=== PATIENT | female | born 1940 | race African-American/Black ===

== ENCOUNTER 2019-08-05 16:14 | Emergency (ER) | payer MEDICARE, BC ==
[~2019-08-05] VITALS: Ht 152.4 cm; Wt 65.2 kg
--- NOTE | 2019-08-05 16:54 | NUR ---
THIS IS AN 79YO FEMALE COMING IN WITH SYSTEMIC "BURNING LIKE SENSATION TO SKIN AND DIZZINESS/WEAKNESS THAT COMES AND GOES". PATIENT STATES THESE SYMPTOMS HAVE BEEN INTERMITTENT X1 YEAR, THIS PAST WEEK HAS BEEN CONSTANT AND WORSENING. C/O EPIGASTRIC PAIN RADIATING TO RIGHT SHOULDER THAT IS INTERMITTENT RATED 5/10 PAIN, SOB WHEN LYING ON RIGHT SIDE. HX OF COPD. DENIES COUGH/FATIGUE. FSBS IN TRIAGE 109, EKG IN TRIAGE. 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 ALL OTHER VSS, NADN, CALL LIGHT IN REACH. PATIENT ON 2L NC BASELINE FOR COPD
[2019-08-05 17:12] LABS: BASOPHILS # (AUTO) 0.02 x10^3/uL (0-0.1); BASOPHILS % (AUTO) 0 % (0-1); EOSINOPHILS # (AUTO) 0.05 x10^3/uL (0-0.4); EOSINOPHILS % (AUTO) 1 % (1-7); LYMPHOCYTES # (AUTO) 1.02 x10^3/uL (1-3.4); LYMPHOCYTES % (AUTO) 11 % (22-44); MD NO; MEAN CORPUSCULAR HEMOGLOBIN 30.5 pg (27.0-34.8); MEAN CORPUSCULAR HGB CONC 32.6 g/dL (32.4-35.8); MEAN CORPUSCULAR VOLUME 93.6 fL (80-100); MEAN PLATELET VOLUME 7.5 fL (7.4-10.4); MONOCYTES # (AUTO) 0.47 x10^3/uL (0.2-0.8); MONOCYTES % (AUTO) 5 % (2-9); NEUTROPHILS # (AUTO) 7.44 x10^3/uL (1.8-6.8); NEUTROPHILS % (AUTO) 83 % (42-75); PLATELET COUNT 228 x10^3/uL (130-400); RED BLOOD COUNT 4.27 x10^6/uL (3.82-5.3); RED CELL DISTRIBUTION WIDTH 16.4 % (9.6-15.2)
[2019-08-05] MEDS ORDERED: LEVO75TA5 PO (17:15)
[2019-08-05] MEDS ORDERED: DILT-8 PO (17:15)
[2019-08-05] MEDS ORDERED: TIOT18CA INH (17:15)
[2019-08-05] MEDS ORDERED: BUDE10.2 INH (17:15)
[2019-08-05] MEDS ORDERED: OMEP-110 PO (17:17)
[2019-08-05] MEDS ORDERED: OLME40TA12 PO (17:17)
[2019-08-05] MEDS ORDERED: ASPI-496 PO (17:17)
[2019-08-05] MEDS ORDERED: ALBU18HF INH (17:18)
[2019-08-05] MEDS ORDERED: CHOL10003 PO (17:18)
[2019-08-05 17:19] LABS: ALANINE AMINOTRANSFERASE 21 U/L (12-78); ALBUMIN 3.2 g/dL (3.4-5.0); ANION GAP 7 mmol/L (5-15); CALCIUM 9.1 mg/dL (8.5-10.1); CHLORIDE 107 mmol/L (98-107); CREATININE 0.99 mg/dL (0.55-1.02)
[2019-08-05] MEDS ORDERED: LOVA20TA2 PO (17:19)
[2019-08-05 17:22] LABS: ALKALINE PHOSPHATASE 77 U/L (45-117); BILIRUBIN,TOTAL 0.5 mg/dL (0.2-1.0)
[2019-08-05 17:34] VITALS: BP 156/67
--- NOTE | 2019-08-05 18:03 | NUR ---
UA COLLECTED AND SENT
[2019-08-05 18:21] LABS: MICROSCOPIC NOT IND
--- NOTE | 2019-08-05 18:46 | NUR ---
Patient given discharge instructions and they have confirmed that they understand the instructions. Patient wheeled to discahrge with daughter.
== END 2019-08-05 18:48 | disposition home or self-care (01) ==
LOC: ED 17:43
DX: R20.2 Paresthesia of skin (principal); I10 Essential (primary) hypertension; J44.9 Chronic obstructive pulmonary disease, unspecified; I45.10 Unspecified right bundle-branch block; R42 Dizziness and giddiness; Z86.39 Personal history of other endocrine, nutritional and metabolic disease
CPT/HCPCS: 36415; 71045; 80053; 81003; 82962; 83605; 83690; 83735; 84443; 85025; 93005; 99284